=== PATIENT | female | born 1970 | race Caucasian/White ===

== ENCOUNTER 2021-10-11 10:59 | Emergency (ER) | payer MEDICARE, MEDICAID ==
[~2021-10-11] VITALS: Ht 154.9 cm; Wt 70.0 kg
--- NOTE | 2021-10-11 11:05 | NUR ---
TAKEN TO CT
--- NOTE | 2021-10-11 11:47 | NUR ---
unable to draw blood due to patient being hard stick. EMS line no good, delay in labs noted
[2021-10-11 11:49] LABS: ALANINE AMINOTRANSFERASE 18 U/L (12-78); ALBUMIN 3.4 G/DL (3.4-5.0); ALBUMIN/GLOBULIN RATIO 1.1 (1.1-1.5); ALKALINE PHOSPHATASE 69 IU/L (46-116); ANION GAP 8 (8-16); ASPARTATE AMINO TRANSFERASE 15 U/L (10-37); BILIRUBIN,TOTAL 0.3 MG/DL (0.1-1.0); BLOOD UREA NITROGEN 14 MG/DL (7-18); BUN/CREATININE RATIO 17.7 (6.6-38.0); CHLORIDE 110 MMOL/L (99-107); CREATININE 0.79 MG/DL (0.40-0.90); GLUCOSE 128 MG/DL (70-104); POTASSIUM 4.3 MMOL/L (3.5-5.1); SODIUM 145 MMOL/L (135-145); TOTAL CARBON DIOXIDE 27.5 MMOL/L (24-32); TOTAL PROTEIN 6.5 G/DL (6.4-8.2); eGFR 76 ML/MIN
--- NOTE | 2021-10-11 12:20 | NUR ---
multiple nurses unable to draw labs or establish IV
[2021-10-11 13:05] LABS: BASOPHILS % (AUTO) 0.8 % (0-1); EOSINOPHILS # (AUTO) 0.3 X10'3 (0-0.9); EOSINOPHILS % (AUTO) 5.5 % (0-6); HEMATOCRIT 33.2 % (35.0-45.0); HEMOGLOBIN 10.4 g/dl (12.0-16.0); LYMPHOCYTES # (AUTO) 1.9 X10'3 (1.1-4.8); LYMPHOCYTES % (AUTO) 31.7 % (21-51); MEAN CORPUSCULAR HEMOGLOBIN 25.5 PG (27.0-31.0); MEAN CORPUSCULAR HGB CONC 31.5 g/dL (33.0-36.5); MEAN CORPUSCULAR VOLUME 80.9 FL (78-98); MONOCYTES # (AUTO) 0.6 X10'3 (0-0.9); MONOCYTES % (AUTO) 10.5 % (2-12); NEUTROPHILS % (AUTO) 51.5 % (42-75); PLATELET COUNT 303 X10'3 (140-440); RED CELL DISTRIBUTION WIDTH 18.3 % (11.5-14.5); WHITE BLOOD COUNT 5.9 X10'3 (4.5-11.0)
[2021-10-11] MEDS ORDERED: ondansetron/PF 4mg/2ml inj IV ONE (13:10)
[2021-10-11 13:17] LABS: APTT 24 SECONDS (22-32)
[2021-10-11] MEDS ORDERED: ketorolac trometh. 30mg/ml inj. IV ONE (13:40)
[2021-10-11] MEDS ORDERED: SUMAtriptan succ. 6 MG/0.5ml vial SQ ONE (13:40)
[2021-10-11] MEDS ORDERED: acetaminophen 325mg tablet PO ONE (13:40)
[2021-10-11] MEDS ORDERED: diphenhydrAMINE 50 mg/ml inj IV ONE (13:40)
--- NOTE | 2021-10-11 13:49 | NUR ---
patient states she will not be admitted, will leave AMA if admission is requested
--- NOTE | 2021-10-11 13:58 | NUR ---
TAKEN TO CT
[2021-10-11] MEDS ORDERED: acetaminophen 1,000mg/100ml IV 100 ML IV STA (14:33)
[2021-10-11] MEDS ORDERED: normal saline 1000ml 1,000 ML IV ONE (14:35)
--- NOTE | 2021-10-11 14:45 | NUR ---
patient refusing further medication at this time, states she wishes to speak with her daughter abour possibly leaving AMA
[2021-10-11] MEDS ORDERED: dexamethasone sod phosphate 10mg/ml inj IV STA (15:43)
[2021-10-11] MEDS ORDERED: metoclopramide 5 mg/ml inj IV ONE (15:45)
[2021-10-11] MEDS ORDERED: diazepam inj 5 MG/ML inj. IV ONE (15:45)
[2021-10-11 16:28] VITALS: BP 132/88
--- NOTE | 2021-10-11 16:54 | NUR ---
patient refusing care at this time with family at bedside and MD at bedside. patient claimed that scans were taking too long and medication was not strong enough for headache. frannie has already advised that pain management was a step by step approach and she was refusing some medications as well. MD offered another treatment for pain which involved steroids and fluids, patient states she does not want steroids and already drinks enough water and does not need more fluids. at this time she wanted nothing to do with further treatemnt and stated she was leaving. MD advised patient of risks and patient stated in front of family "i know what the risks are and i dont care, i am DNR". patient eloped at this time, refused to sign any paperwork and refusal of care.
== END 2021-10-11 16:59 | disposition left against medical advice (07) ==
LOC: ER 11:00
DX: G43.109 Migraine with aura, not intractable, without status migrainosus (principal); R11.0 Nausea; R20.0 Anesthesia of skin; Z86.73 Personal history of transient ischemic attack (TIA), and cerebral infarction without residual deficits; Z88.0 Allergy status to penicillin; Z88.8 Allergy status to other drugs, medicaments and biological substances
CPT/HCPCS: 36415; 70450; 70496; 70498; 71045; 80053; 82948; 84484; 85025; 85610; 85651; 85730; 93005; 96372; 96374; 96375; 99285; J1200; J2405; J3030; J3490

== ENCOUNTER 2021-11-14 16:33 | Emergency (ER) | payer MEDICAID, MEDICARE, OTHER ==
[~2021-11-14] VITALS: Ht 154.9 cm; Wt 81.0 kg
[2021-11-14] MEDS ORDERED: ondansetron 4mg rapidly disintigrating tab PO ONE (18:10)
[2021-11-14] MEDS ORDERED: oxyCODONE/APAP 10/325mg tablet PO ONE (18:45)
[2021-11-14] MEDS ORDERED: ONDA8TAB13 PO (19:07)
[2021-11-14 20:19] VITALS: BP 158/71
== END 2021-11-14 20:19 | disposition home or self-care (01) ==
LOC: ER 16:33
DX: G43.909 Migraine, unspecified, not intractable, without status migrainosus (principal); R11.10 Vomiting, unspecified; I48.91 Unspecified atrial fibrillation; Z86.73 Personal history of transient ischemic attack (TIA), and cerebral infarction without residual deficits; Z88.0 Allergy status to penicillin; Z88.8 Allergy status to other drugs, medicaments and biological substances; Z79.899 Other long term (current) drug therapy
CPT/HCPCS: 99283

== ENCOUNTER 2021-11-21 10:33 | Emergency (ER) | payer OTHER ==
[~2021-11-21] VITALS: Ht 154.9 cm; Wt 81.0 kg
[~2021-11-21 10:33] MED LIST: ONDA8TAB13 PO
[2021-11-21 10:47] VITALS: BP 168/93
[2021-11-21 11:11] LABS: BASOPHILS # (AUTO) 0.1 X10'3 (0-0.2); BASOPHILS % (AUTO) 1.2 % (0-1); EOSINOPHILS # (AUTO) 0.2 X10'3 (0-0.9); EOSINOPHILS % (AUTO) 3.8 % (0-6); HEMATOCRIT 35.6 % (35.0-45.0); HEMOGLOBIN 11.1 g/dl (12.0-16.0); LYMPHOCYTES # (AUTO) 1.5 X10'3 (1.1-4.8); LYMPHOCYTES % (AUTO) 26.2 % (21-51); MEAN CORPUSCULAR HEMOGLOBIN 24.6 PG (27.0-31.0); MEAN CORPUSCULAR HGB CONC 31.2 g/dL (33.0-36.5); MEAN CORPUSCULAR VOLUME 78.7 FL (78-98); MEAN PLATELET VOLUME 7.1 FL (7.4-10.4); MONOCYTES # (AUTO) 0.5 X10'3 (0-0.9); MONOCYTES % (AUTO) 9.3 % (2-12); NEUTROPHILS # (AUTO) 3.4 X10'3 (1.8-7.7); NEUTROPHILS % (AUTO) 59.5 % (42-75); PLATELET COUNT 365 X10'3 (140-440); RED BLOOD COUNT 4.52 X10'6 (4.20-5.60); RED CELL DISTRIBUTION WIDTH 17.3 % (11.5-14.5); WHITE BLOOD COUNT 5.7 X10'3 (4.5-11.0)
[2021-11-21 11:22] LABS: ALANINE AMINOTRANSFERASE 24 U/L (12-78); ALBUMIN 3.2 G/DL (3.4-5.0); ALKALINE PHOSPHATASE 70 IU/L (46-116); ANION GAP 7 (8-16); ASPARTATE AMINO TRANSFERASE 12 U/L (10-37); BILIRUBIN,TOTAL 0.2 MG/DL (0.1-1.0); BLOOD UREA NITROGEN 14 MG/DL (7-18); BUN/CREATININE RATIO 16.5 (6.6-38.0); CALCIUM 8.9 MG/DL (8.5-10.1); CHLORIDE 105 MMOL/L (99-107); CREATININE 0.85 MG/DL (0.40-0.90); GLUCOSE 137 MG/DL (70-104); POTASSIUM 4.5 MMOL/L (3.5-5.1); SODIUM 141 MMOL/L (135-145); TOTAL CARBON DIOXIDE 28.9 MMOL/L (24-32); TOTAL PROTEIN 6.4 G/DL (6.4-8.2); eGFR 70 ML/MIN
[2021-11-21] MEDS ORDERED: acetaminophen 325mg tablet PO ONE ×2 (11:25→12:10)
[2021-11-21] MEDS ORDERED: traMADol 50MG tablet PO ONE (12:10)
== END 2021-11-21 12:32 | disposition home or self-care (01) ==
LOC: ER 10:34
DX: R07.9 Chest pain, unspecified (principal); M54.9 Dorsalgia, unspecified; I11.9 Hypertensive heart disease without heart failure; G43.909 Migraine, unspecified, not intractable, without status migrainosus; J44.9 Chronic obstructive pulmonary disease, unspecified; Z88.0 Allergy status to penicillin; Z88.6 Allergy status to analgesic agent; Z88.5 Allergy status to narcotic agent; Z79.899 Other long term (current) drug therapy
CPT/HCPCS: 36415; 71045; 80053; 83880; 84484; 85025; 93005; 99285